=== PATIENT | male | born 1995 | race Caucasian/White ===

== ENCOUNTER 2021-04-07 20:18 | Emergency (ER) | payer OTHER ==
[~2021-04-07] VITALS: Ht 175.3 cm; Wt 78.5 kg
--- NOTE | 2021-04-07 20:50 | NUR ---
BIBSELF C/O MID RIGHT BACK PAIN S/P LIFITING OBJECT IN THE AM. PAIN STARTED AT 1500. TOOK IBUPROFEN 800 MG AT 1930. A/OX4. PT TOLERATING R/A WELL.
[2021-04-07] MEDS ORDERED: HYDROCODONE/APAP 5/325MG TABLET ONE (21:07)
--- NOTE | 2021-04-07 21:08 | NUR ---
BRANCH SERVICE REPRESENTATIVE AT BEDSIDE
[2021-04-07] MEDS ORDERED: HYDROCODONE/APAP 5/325MG TABLET PO ONE (21:30)
[2021-04-07] MEDS ORDERED: NAPR-1164 PO (21:34)
[2021-04-07] MEDS ORDERED: CYCL10TA9 PO (21:34)
--- NOTE | 2021-04-07 22:06 | NUR ---
Patient discharged to home in stable condition. RX Written and verbal after care instructions given. Patient verbalizes understanding of instruction. PT ambulatory with a steady gait. PT A/OX4.
[2021-04-07 22:09] VITALS: BP 128/81
== END 2021-04-07 22:07 | disposition home or self-care (01) ==
LOC: ER 20:29
DX: S29.012A Strain of muscle and tendon of back wall of thorax, initial encounter (principal); Z60.2 Problems related to living alone; Z79.899 Other long term (current) drug therapy; X50.0XXA Overexertion from strenuous movement or load, initial encounter; Y93.89 Activity, other specified; Y92.89 Other specified places as the place of occurrence of the external cause; Y99.8 Other external cause status
CPT/HCPCS: 71045-TC